=== PATIENT | female | born 1960 | race Caucasian/White ===

== ENCOUNTER 2017-12-08 21:09 | Emergency (ER) | payer MEDICAID ==
[2017-12-08] MEDS ORDERED: SODIUM CHLORIDE 0.9% 1,000 ML IV ONE (21:42)
[2017-12-08 21:50] LABS: BASOPHILS % (AUTO) 0.6 %; EOSINOPHILS # (AUTO) 0.1 10^3/uL (0.0-0.7); EOSINOPHILS % (AUTO) 1.4 %; HGB - HEMOGLOBIN 15.6 g/dL (12.0-16.0); LYMPHOCYTES # (AUTO) 2.6 10^3/uL (1.5-3.5); LYMPHOCYTES % (AUTO) 37.5 %; MEAN CORPUSCULAR HEMOGLOBIN 28.9 pg (27.0-31.0); MEAN CORPUSCULAR HGB CONC 33.5 g/dL (32.0-36.0); MEAN CORPUSCULAR VOLUME 86.3 fL (81.0-99.0); MEAN PLATELET VOLUME 7.1 fL (7.9-10.8); MONOCYTES # (AUTO) 0.4 10^3/uL (0.0-1.0); MONOCYTES % (AUTO) 6.5 %; NEUTROPHILS # (AUTO) 3.7 10^3/uL (1.5-6.6); PLT - PLATELET COUNT 265 10^3/uL (130-450); RED BLOOD COUNT 5.39 10^6/uL (4.20-5.40); RED CELL DISTRIBUTION WIDTH 13.3 % (12.0-15.0); WHITE BLOOD COUNT 6.9 x10^3/uL (4.8-10.8)
[2017-12-08] MEDS ORDERED: METOPROLOL 5 MG/5 ML VIAL IVP STA (22:03)
[2017-12-08 22:11] LABS: ALBUMIN 3.8 g/dL (3.2-5.5); BILIRUBIN,TOTAL 0.5 mg/dL (0.2-1.0); CALCIUM 9.3 mg/dL (8.5-10.3); CREATININE 0.9 mg/dL (0.4-1.0); TOTAL PROTEIN 7.7 g/dL (6.7-8.2)
--- NOTE | 2017-12-08 22:11 | XRAY Report ---
Reason: elevated bp, right sided numbness Procedure Date: 12/08/2017 Accession Number: [id number] / [id number] Procedure: XR - Chest 2 View X-Ray CPT Code: 99321 FULL RESULT: EXAM: CHEST RADIOGRAPHY EXAM DATE: 12/08/2017 09:56 PM. CLINICAL HISTORY: Elevated bp, right sided numbness. COMPARISON: None. TECHNIQUE: 2 views. FINDINGS: Lungs/Pleura: No focal consolidation. No pleural effusion. No pneumothorax. Normal volumes. Mediastinum: Heart size is upper limit of normal. Other: None. IMPRESSION: No acute cardiopulmonary abnormality. RADIA
[2017-12-08 22:59] LABS: BILIRUBIN,URINE NEGATIVE (NEGATIVE); GLUCOSE, URINE (UA) >=1000 mg/dL (NEGATIVE); KETONES,URINE (UA) NEGATIVE (NEGATIVE); LEUKOCYTE ESTERASE, URINE NEGATIVE (NEGATIVE); NITRITE,URINE NEGATIVE (NEGATIVE); OCCULT BLOOD,URINE NEGATIVE (NEGATIVE); PROTEIN,URINE 30 mg/dL (NEGATIVE); UROBILINOGEN,URINE 0.2 (NORMAL) E.U./dL (NORMAL)
[2017-12-08 23:01] LABS: CLARITY,URINE CLEAR (CLEAR)
--- NOTE | 2017-12-08 23:09 | ED Physician Documentation ---
History of Present Illness - Stated complaint Stated Complaint: TINGLY CHEST/TIRED - Chief complaint Chief Complaint: Cardiac - Additonal information Additional information: 57-year-old female presents the emergency department with numbness and tingling , headache and dizziness and general weakness which has been ongoing. The patient reports that this happens when her blood pressure becomes elevated. The patient was seen at another hospital earlier this week. The patient reports taking her medications as prescribed. The patient reports recently relocated to the area and not having a primary care physician. The patient has set up primary care but is waiting for her appointment. Symptoms are described as moderate. No other associated symptoms. No specific triggering factors Review of Systems Constitutional: reports: Fatigue. denies: Fever, Chills Eyes: denies: Loss of vision, Discharge Ears: denies: Ear pain Nose: denies: Congestion Throat: denies: Oral lesions / sores Cardiac: denies: Chest pain / pressure Respiratory: denies: Cough GI: denies: Abdominal Pain : denies: Dysuria Skin: denies: Laceration (s) Musculoskeletal: denies: Neck pain, Extremity pain Neurologic: reports: Numbness, Headache. denies: Generalized weakness, Focal weakness, Difficulty speaking, Near syncope, Syncope, Altered mental status, Head injury Immunocompromised: denies: Chemotherapy PD PAST MEDICAL HISTORY - Past Medical History Past Medical History: No Cardiovascular: Hypertension, High cholesterol Respiratory: None Neuro: None Endocrine/Autoimmune: Type 2 diabetes GI: GERD, Ulcers [employer] ASSOCIATE: None : None HEENT: None Psych: None Musculoskeletal: None Derm: None - Past Surgical History Past Surgical History: No /[employer]AL[employer]OCIATE: Hysterectomy - Present Medications Home Medications: Ambulatory Orders Medication Instructions Recorded Confirmed Atenolol 100 mg PO 12/08/17 Atorvastatin Calcium 20 mg PO 12/08/17 Dapagliflozin Propanediol [Farxiga] 5 mg PO 12/08/17 Glipizide [Glipizide Xl] 10 mg PO 12/08/17 Liraglutide [Victoza 2-James] 12/08/17 Lisinopril 40 mg PO 12/08/17 Metformin HCl 1,000 mg PO 12/08/17 Omeprazole 20 mg PO 12/08/17 - Allergies Allergies/Adverse Reactions: Allergies Allergy/AdvReac Type Severity Reaction Status Date / Time No Known Drug Allergies Allergy Verified 12/08/17 21:25 - Social History Does the pt smoke?: No Smoking Status: Never smoker Does the pt drink ETOH?: Yes Does the pt have substance abuse?: No - Immunizations Immunizations are current?: No - POLST Patient has POLST: No PD ED PE NORMAL - General General: Alert and oriented X 3, No acute distress - HEENT HEENT: Atraumatic, PERRL, EOMI, Ears normal - Neck Neck: Supple, no meningeal sign, No JVD - Cardiac Cardiac: RRR, Strong equal pulses - Respiratory Respiratory: No respiratory distress - Abdomen Abdomen: Soft, Non tender, Non distended - Derm Derm: Normal color - Extremities Extremities: No deformity, No edema - Neuro Neuro: Alert and oriented X 3, 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, No motor deficit, No sensory deficit, Normal speech - Psych Psych: Normal mood Results - Vitals Vitals: Vital Signs - 24 hr 12/08/17 12/08/17 12/08/17 21:17 22:11 22:15 Temperature 36.5 C Heart Rate 73 74 Respiratory 12 16 Rate Blood Pressure 215/102 H 196/92 H 198/92 H O2 Saturation 96 99 12/08/17 12/08/17 12/08/17 22:20 22:25 22:40 Temperature Heart Rate Respiratory Rate Blood Pressure 196/90 H 205/97 H 179/91 H O2 Saturation 12/08/17 23:11 Temperature Heart Rate 80 Respiratory 18 Rate Blood Pressure 180/90 H O2 Saturation 96 Oxygen O2 Source Room air - EKG (time done) 21:22 Rate: Rate (enter#) Rhythm: NSR Intervals: Normal SD, QRS normal Ischemia: Non specific changes - Labs Labs: Laboratory Tests 12/08/17 12/08/17 12/08/17 21:30 21:30 21:30 WBC 6.9 RBC 5.39 Hgb 15.6 Hct 46.5 MCV 86.3 MCH 28.9 MCHC 33.5 RDW 13.3 Plt Count 265 MPV 7.1 L Neut # (Auto) 3.7 Lymph # (Auto) 2.6 Murray # (Auto) 0.4 Eos # (Auto) 0.1 Baso # (Auto) 0.0 Absolute Nucleated RBC 0.00 Nucleated RBC % 0.1 Sodium 140 Potassium 3.7 Chloride 107 Carbon Dioxide 24 Anion Gap 9.0 BUN 15 Creatinine 0.9 Estimated GFR (MDRD) 64 L Glucose 138 H Calcium 9.3 Total Bilirubin 0.5 AST 22 ALT 13 Alkaline Phosphatase 73 Troponin I < 0.04 B-Natriuretic Peptide Total Protein 7.7 Albumin 3.8 Globulin 3.9 Albumin/Globulin Ratio 1.0 Lipase 42 Urine Color Urine Clarity Urine pH Ur Specific Pitman Urine Protein Urine Glucose (UA) Urine Ketones Urine Occult Blood Urine Nitrite Urine Bilirubin Urine Urobilinogen Ur Leukocyte Esterase Urine RBC Urine WBC Ur Squamous Epith Cells Urine Bacteria Ur Microscopic Review Urine Culture Comments 12/08/17 12/08/17 21:30 22:53 WBC RBC Hgb Hct MCV MCH MCHC RDW Plt Count MPV Neut # (Auto) Lymph # (Auto) Murray # (Auto) Eos # (Auto) Baso # (Auto) Absolute Nucleated RBC Nucleated RBC % Sodium Potassium Chloride Carbon Dioxide Anion Gap BUN Creatinine Estimated GFR (MDRD) Glucose Calcium Total Bilirubin AST ALT Alkaline Phosphatase Troponin I B-Natriuretic Peptide 58 Total Protein Albumin Globulin Albumin/Globulin Ratio Lipase Urine Color LT. YELLOW Urine Clarity CLEAR Urine pH 6.0 Ur Specific Pitman 1.010 Urine Protein 30 H Urine Glucose (UA) >=1000 H Urine Ketones NEGATIVE Urine Occult Blood NEGATIVE Urine Nitrite NEGATIVE Urine Bilirubin NEGATIVE Urine Urobilinogen 0.2 (NORMAL) Ur Leukocyte Esterase NEGATIVE Urine RBC 0-5 Urine WBC 0-3 Ur Squamous Epith Cells NONE SEEN Urine Bacteria None Seen Ur Microscopic Review INDICATED Urine Culture Comments NOT INDICATED - Rads (name of study) CXR Radiology: Final report received PD MEDICAL DECISION MAKING - ED course ED course: The patient's workup does not reveal any significant abnormality. The patient refused a CT scan in the emergency department to evaluate her headache and elevated blood pressure. The patient understands that she could be at risk for an undiagnosed condition and feels comfortable with this. On reevaluation the patient is resting comfortably and her symptoms have resolved. The patient currently appears appropriate for discharge and ongoing outpatient management. I discussed the importance of reevaluation with primary care for blood pressure management. They understand and agree. I discussed warning signs and recommended returning to the emergency department immediately for worsening or any concerns. - Sepsis Event Vital Signs: Vital Signs - 24 hr 12/08/17 12/08/17 12/08/17 21:17 22:11 22:15 Temperature 36.5 C Heart Rate 73 74 Respiratory 12 16 Rate Blood Pressure 215/102 H 196/92 H 198/92 H O2 Saturation 96 99 12/08/17 12/08/17 12/08/17 22:20 22:25 22:40 Temperature Heart Rate Respiratory Rate Blood Pressure 196/90 H 205/97 H 179/91 H O2 Saturation 12/08/17 23:11 Temperature Heart Rate 80 Respiratory 18 Rate Blood Pressure 180/90 H O2 Saturation 96 Oxygen O2 Source Room air Departure - Departure Disposition: Home, Self Care Clinical Impression: Elevated blood pressure reading, Numbness and tingling, Weakness Condition: Good Instructions: Hypertension Control, High Blood Pressure, ED Paraesthesias Comments: Please Follow-up with primary care for ongoing management of your blood pressure. Please return to the emergency department immediately for worsening symptoms or any concerns
[2017-12-08 23:10] LABS: BACTERIA,URINE None Seen /HPF (None Seen); RBC,URINE 0-5 /HPF (0-5); SQUAMOUS EPITHELIAL CELL,UR NONE SEEN (<= Few)
[2017-12-08 23:12] VITALS: BP 180/90
== END 2017-12-08 23:22 | disposition home or self-care (01) ==
LOC: ED 21:09
DX: I10 Essential (primary) hypertension (principal); R20.0 Anesthesia of skin; R53.1 Weakness; R94.31 Abnormal electrocardiogram [ECG] [EKG]; E78.00 Pure hypercholesterolemia, unspecified; E11.9 Type 2 diabetes mellitus without complications; Z79.84 Long term (current) use of oral hypoglycemic drugs
CPT/HCPCS: 36415; 71046; 80053; 81001; 81003; 83690; 83880; 84484; 85025; 87086; 93005; 96361; 96374; 99284

== ENCOUNTER 2017-12-09 15:15 | Outpatient (CLI) | payer MEDICAID ==
[2017-12-09 18:52] LABS: BASOPHILS % (AUTO) 0.5 %; EOSINOPHILS # (AUTO) 0.1 10^3/uL (0.0-0.7); EOSINOPHILS % (AUTO) 0.9 %; HGB - HEMOGLOBIN 15.4 g/dL (12.0-16.0); LYMPHOCYTES # (AUTO) 1.9 10^3/uL (1.5-3.5); LYMPHOCYTES % (AUTO) 27.1 %; MEAN CORPUSCULAR HEMOGLOBIN 29.2 pg (27.0-31.0); MEAN CORPUSCULAR HGB CONC 33.7 g/dL (32.0-36.0); MEAN CORPUSCULAR VOLUME 86.7 fL (81.0-99.0); MEAN PLATELET VOLUME 7.6 fL (7.9-10.8); MONOCYTES # (AUTO) 0.5 10^3/uL (0.0-1.0); MONOCYTES % (AUTO) 7.3 %; NEUTROPHILS # (AUTO) 4.5 10^3/uL (1.5-6.6); NEUTROPHILS % (AUTO) 64.2 %; PLT - PLATELET COUNT 250 10^3/uL (130-450); RED BLOOD COUNT 5.28 10^6/uL (4.20-5.40); RED CELL DISTRIBUTION WIDTH 13.2 % (12.0-15.0)
[2017-12-09 19:03] LABS: ALBUMIN 3.8 g/dL (3.2-5.5); BILIRUBIN,TOTAL 0.6 mg/dL (0.2-1.0); CALCIUM 9.4 mg/dL (8.5-10.3); TOTAL PROTEIN 7.6 g/dL (6.7-8.2)
[2017-12-09 19:44] LABS: HB2 TOTAL 16.7 g/dL; HEMOGLOBIN A1C 1.19 g/dL; HEMOGLOBIN A1C % 8.7 % (4.6-6.2)
== END 2017-12-09 15:16 | disposition home or self-care (01) ==
LOC: LAB.N 15:15
PROVIDERS: ATTEND Physician Assistant Medical
DX: Z00.00 Encounter for general adult medical examination without abnormal findings (principal); E11.9 Type 2 diabetes mellitus without complications; E78.5 Hyperlipidemia, unspecified; I10 Essential (primary) hypertension
CPT/HCPCS: 36415; 80053; 83036; 84443; 85025

== ENCOUNTER 2018-05-18 08:00 | Outpatient (CLI) | payer MEDICAID ==
[2018-05-18 13:09] LABS: CREATININE 0.9 mg/dL (0.4-1.0)
[2018-05-18 13:22] LABS: HB2 TOTAL 17.2 g/dL; HEMOGLOBIN A1C 0.89 g/dL; HEMOGLOBIN A1C % 6.9 % (4.6-6.2)
[2018-05-18 19:54] LABS: BASOPHILS % (AUTO) 0.3 %; EOSINOPHILS # (AUTO) 0.1 10^3/uL (0.0-0.7); EOSINOPHILS % (AUTO) 1.7 %; HGB - HEMOGLOBIN 15.7 g/dL (12.0-16.0); LYMPHOCYTES # (AUTO) 1.9 10^3/uL (1.5-3.5); LYMPHOCYTES % (AUTO) 28.1 %; MEAN CORPUSCULAR HEMOGLOBIN 29.9 pg (27.0-31.0); MEAN CORPUSCULAR HGB CONC 33.5 g/dL (32.0-36.0); MEAN CORPUSCULAR VOLUME 89.1 fL (81.0-99.0); MEAN PLATELET VOLUME 8.1 fL (7.9-10.8); MONOCYTES # (AUTO) 0.4 10^3/uL (0.0-1.0); MONOCYTES % (AUTO) 5.5 %; NEUTROPHILS # (AUTO) 4.2 10^3/uL (1.5-6.6); NEUTROPHILS % (AUTO) 64.4 %; PLT - PLATELET COUNT 291 10^3/uL (130-450); RED BLOOD COUNT 5.24 10^6/uL (4.20-5.40); RED CELL DISTRIBUTION WIDTH 13.6 % (12.0-15.0); WHITE BLOOD COUNT 6.6 x10^3/uL (4.8-10.8)
== END 2018-05-18 23:59 | disposition home or self-care (01) ==
LOC: LAB.N 08:00
PROVIDERS: ATTEND Physician Assistant Medical
DX: E11.9 Type 2 diabetes mellitus without complications (principal)
CPT/HCPCS: 36415; 80048; 83036; 85025

== ENCOUNTER 2018-07-04 10:50 | Outpatient (CLI) | payer MEDICAID | END 2018-07-04 10:51 | disposition home or self-care (01) | LOC: SC 10:50 | PROVIDERS: ATTEND Internal Medicine Pulmonary Disease | DX: G47.10 Hypersomnia, unspecified (principal); G47.8 Other sleep disorders; R06.83 Snoring; E66.9 Obesity, unspecified; Z68.33 Body mass index [BMI] 33.0-33.9, adult | CPT/HCPCS: 99203; 99212 ==

== ENCOUNTER 2018-07-13 20:32 | Outpatient (CLI) | payer MEDICAID | END 2018-07-13 20:33 | disposition home or self-care (01) | LOC: SC 20:32 | PROVIDERS: ATTEND Internal Medicine Pulmonary Disease | DX: G47.33 Obstructive sleep apnea (adult) (pediatric) (principal) | CPT/HCPCS: 95810 ==

== ENCOUNTER 2018-08-11 08:00 | Outpatient (CLI) | payer MEDICAID ==
[2018-08-11 13:56] LABS: BUN - BLOOD UREA NITROGEN 26 mg/dL (6-20); CALCIUM 9.1 mg/dL (8.5-10.3); CARBON DIOXIDE - CO2 28 mmol/L (21-32); CHLORIDE 100 mmol/L (101-111); CHOL/HDL RATIO 3.4 (<4.4); CHOLESTEROL 140 mg/dL; CREATININE 1.2 mg/dL (0.4-1.0); GFR - MDRD 46 (>89); GLUCOSE 95 mg/dL (70-100); HDL CHOLESTEROL 41 mg/dL; LDL CHOLESTEROL,CALCULATED 67 mg/dL; LDL/HDL RATIO 1.6 (<4.4); SODIUM 138 mmol/L (135-145); VLDL CHOLESTEROL 32 mg/dL
[2018-08-11 14:17] LABS: HB2 TOTAL 14.8 g/dL; HEMOGLOBIN A1C 0.7 g/dL; HEMOGLOBIN A1C % 6.5 % (4.6-6.2)
== END 2018-08-11 23:59 | disposition home or self-care (01) ==
LOC: LAB.N 08:00
PROVIDERS: ATTEND Physician Assistant Medical
DX: I10 Essential (primary) hypertension (principal); I69.951 Hemiplegia and hemiparesis following unspecified cerebrovascular disease affecting right dominant side; E78.5 Hyperlipidemia, unspecified; E11.9 Type 2 diabetes mellitus without complications
CPT/HCPCS: 36415; 80048; 80061; 83036; 83721

== ENCOUNTER 2018-09-25 09:08 | Outpatient (CLI) | payer MEDICAID | END 2018-09-25 09:09 | disposition home or self-care (01) | LOC: SC 09:08 | PROVIDERS: ATTEND Internal Medicine Pulmonary Disease | DX: G47.33 Obstructive sleep apnea (adult) (pediatric) (principal) | CPT/HCPCS: 99212; 99213 ==

== ENCOUNTER 2018-10-21 20:38 | Outpatient (CLI) | payer MEDICAID | END 2018-10-21 20:39 | disposition home or self-care (01) | LOC: SC 20:38 | PROVIDERS: ATTEND Internal Medicine Pulmonary Disease | DX: G47.33 Obstructive sleep apnea (adult) (pediatric) (principal) | CPT/HCPCS: 95811 ==

== ENCOUNTER 2018-12-12 08:16 | Outpatient (CLI) | payer MEDICAID ==
[2018-12-12 09:14] VITALS: BP 120/80
--- NOTE | 2018-12-12 09:14 | SLEEP CARE CONSULTATION ---
Information from patient questionnaire entered by Candice Wolf. I have reviewed and concur with the information entered by Candice Wolf. This document represents the service I personally performed and the decisions made by me, Susana Tucker, RN, MSN, [employer]PER[employer]. History of Present Illness Accompanied by: Daughter - Veronica Betts Initial [place] Sleepiness Scale score: 3 Current [place] Sleepiness Scale score: 4 Additional HPI information: LIBBY PINTO returns with her daughter for follow up of the recently performed manual titration polysomnography and was informed of the findings. I explained the pathophysiology behind obstructive sleep apnea. We then spent quite a bit of time discussing different treatment options. For mild obstructive sleep apnea, surgery and oral appliance are alternatives to nasal CPAP therapy but in moderate or severe cases, nasal CPAP is the most effective and reliable treatment. I reviewed the impact of weight changes on sleep apnea and strongly recommended losing weight. After some discussion, the patient opted not to use CPAP. She did not like the idea of using a mask to sleep. I showed her other mask styles but they did not look better to her. I also discussed the oral appliance option and she declined. Patient counseled not drink alcohol less than 4 hours before bedtime as it can increase snoring and apnea. Patient was cautioned about risks of drowsy driving until sleepiness symptoms resolve. Patient does not drive . [facility] patient education on snoring and sleep apnea and Non Pap treatment pamphlets reviewed and given to patient. Sleep Study - Polysomnography Polysomnography findings: The quality of the study is good. CPAP was initiated at 5 cmH2O and titrated up to CPAP at 8 cmH2O. CPAP at 7 cmH2O appeared to be optimal (AHI of 1.1 per hour on the pressure). There was supine REM sleep on the pressure. Oxygen saturation was mildly low.. Lower CPAP settings appeared adequate as well. The patient appeared to have tolerated positive airway pressure therapy fairly well. The patients sleep efficiency was slightly reduced due to sleep onset insomnia and a prolonged awakening in the middle of the night. The sleep architecture was normal. There was no significant periodic limb movement of sleep. Cardiac rhythm was normal sinus rhythm without significant arrhythmia. No abnormal behavior (parasomnia) observed during the night. Allergies and Home Medications Known drug allergies: No Home medication list reviewed: Yes Allergy and home medication list: Novolog 100 unit/ml SQ Solution Sliding Scale as directed Glipizide 10mg 1 tab in AM Atorvastatin Calcium 40mg tab one daily in the pm Lisinopril 40mg tab one daily Farxiga (Dapagliflozin Propanediol) 5mg tab one daily Victoza 18 mg/3ml SQ Solution Inject 1.2mg daily Metformin HCL 1000mg tab one twice daily Amlodipine Besylate 10mg tab one daily Aspirin 81mg tab one daily Famotidine 20mg, one 2x daily Chlorthalidone 12.5mg, in AM Review of Systems Review of systems same as previous: Yes Physical Exam Blood Pressure: 120/80 Cuff size: regular Heart Rate: 98 O2 Saturation: 96 Weight (kg): 179 lb Impression and Plan 1. Obstructive Sleep Apnea-Hypopnea Syndrome, moderate, with lowest oxygen saturation of 85% that is adequately treated with CPAP set at 7cmH20. Positive pressure therapy could benefit her cerebrovascular disease. As noted above, Patient declined treatment at this time. I reviewed the significance of treating her apnea to improve sleep quality and reduce health risks especially with her stroke history. I reviewed all options of treatment explaining how CPAP is gold standard with rationale explained. I gave her [facility] patient education about sleep apnea and treatments and reviewed. Her apnea is only slightly worse in supine position so positional therapy is not an option. Thus weight loss was emphasized which could reduce her apnea risk since she is obese with a BMI of 32.7 . She does not speak german and her daughter interpreted the information given. She is advised to follow up with her PCP and human services instructor to discuss her apnea diagnosis and treatment and advised to contact this office if she decides to treat her apnea. * Attempt to lose weight. * Avoid alcohol consumption near bedtime. * Follow up with PCP / human services instructor to discuss study results and treatment options * Contact this office if decides to treat her apnea to initiate treatment. I spent 100% of this 30 minute visit face to face with the patient with greater than 50% of this was spent time counseling the patient and coordination of care.
== END 2018-12-12 08:17 | disposition home or self-care (01) ==
LOC: SC 08:16
PROVIDERS: ATTEND Nurse Practitioner Family
DX: G47.33 Obstructive sleep apnea (adult) (pediatric) (principal); E66.9 Obesity, unspecified; Z68.32 Body mass index [BMI] 32.0-32.9, adult
CPT/HCPCS: 99212; 99214